=== PATIENT | female | born 1950 | race American Indian/Alaskan Native ===

== ENCOUNTER 2021-12-22 09:19 | Outpatient (CLI) | payer MEDICARE ==
--- NOTE | 2021-12-22 11:06 | Ultrasound Report ---
ULTRASOUND RENAL INDICATION / CLINICAL INFORMATION: Essential hypertension. COMPARISON: None available. FINDINGS: RIGHT KIDNEY: Length = 10.9 cm. - Echogenicity: Normal. - Parenchymal Thickness: Normal. - Hydronephrosis: None. - Cyst / Mass: None. - Stones: None seen. LEFT KIDNEY: Length = 10.0 cm. - Echogenicity: Normal. - Parenchymal Thickness: Normal. - Hydronephrosis: None. - Cyst / Mass: None. - Stones: None seen. URINARY BLADDER: No significant abnormality. FREE FLUID: None. ADDITIONAL FINDINGS: None. IMPRESSION: 1. No significant sonographic abnormality. Scribed by: Roslyn Velázquez RDMS, VERO, KATELYN Scribed: 12/22/2021 9:28 AM I have reviewed the images, agree with this report, and edited this report as needed. Signer Name: Jeremiah Limon MD Signed: 12/22/2021 11:01 AM Workstation Name: [email or web address]
== END 2021-12-22 09:20 | disposition home or self-care (01) ==
LOC: US 09:19
PROVIDERS: ATTEND Nurse Practitioner Family
DX: I10 Essential (primary) hypertension (principal)
CPT/HCPCS: 76770